=== PATIENT | female | born 1970 | race African-American/Black ===

== ENCOUNTER 2021-04-22 07:48 | Emergency (ER) | payer OTHER ==
[~2021-04-22] VITALS: Ht 175.3 cm; Wt 90.7 kg
[2021-04-22 09:49] VITALS: BP 118/70
== END 2021-04-22 09:49 | disposition home or self-care (01) ==
LOC: ER 07:48
DX: M25.572 Pain in left ankle and joints of left foot (principal); M79.7 Fibromyalgia; M06.9 Rheumatoid arthritis, unspecified; X50.1XXA Overexertion from prolonged static or awkward postures, initial encounter; Y93.89 Activity, other specified; Y92.89 Other specified places as the place of occurrence of the external cause; Y99.8 Other external cause status